=== PATIENT | female | born 1995 | race African-American/Black ===

== ENCOUNTER 2024-12-09 14:05 | Emergency (ER) | payer OTHER, SELFPAY ==
--- NOTE | ~2024-12-09 | XR_ITS ---
EXAMINATION: XR chest 1V portable Exam Date/Time: 12/09/2024 14:15 CDT HISTORY: cough Comparison: None. RESULT: Lines, tubes, and devices: None. Lungs and pleura: Clear. Cardiomediastinal silhouette: Normal. Other: No acute osseous or upper abdominal finding. IMPRESSION: No acute cardiopulmonary process. Reviewed, dictated and finalized at location K.
--- NOTE | 2024-12-09 14:14 | ED_ITS ---
HPI - SOB/Dyspnea General Chief Complaint: Shortness of Breath/Dyspnea Stated Complaint: SOB Source: patient Mode of arrival: ambulatory Limitations: no limitations History of Present Illness HPI Narrative: This is a 29-year-old female who presents to the ED for chief complaint of flu- like symptoms x2 days. States that Tuesday night she started to feel very fatigued and started to have chills. States that she has had subjective fevers at home. States that today she started to develop a cough. Reports that she was at the doctor's office this week and could have been potentially exposed to sick people but no known sick contacts. Endorses nausea with 1 episode of vomiting today. Denies abdominal pain, chest pain, headache, neck pain, vision change. Related Data Allergies Allergy/AdvReac Type Severity Reaction Status Date / Time No Known Allergies Allergy Verified 12/09/24 14:24 Review of Systems Review of Systems: All systems as dictated in HPI Exam Narrative: GENERAL: Well-appearing, well-nourished, and in no acute distress. HEAD: Normocephalic, atraumatic. EYES: PERRLA and EOMI. ENT: Nares clear, no rhinorrhea or epistaxis. Mucous membranes moist. Oropharynx without tonsillar hypertrophy exudate or other lesions. NECK: Supple. No adenopathy or masses. CHEST: No respiratory distress. Clear to auscultation. No wheezes rales or rhonchi HEART: Regular rate and rhythm. No murmur heard. Normal peripheral pulses. ABDOMEN: Soft, nontender, nondistended, normal active bowel sounds. MSK: Normal range of motion. No edema. SKIN: Warm, dry, no rash. NEURO: Alert and oriented x4. No focal deficits. PSYCH: Normal mood and affect. MDM - SOB/Dyspnea MDM Narrative Medical decision making narrative: This is a 29-year-old female who presents to the ED for chief complaint of upper respiratory infection symptoms for the past 2 days. Vitals are normal. Exam is benign. Viral swabs are positive for COVID. Chest x-ray negative. Patient will be discharged in stable condition. Supportive measures discussed and return precautions given. Patient is understanding and agreeable with plan for discharge with PCP follow-up. Discharge Plan Discharge Clinical Impression: COVID-19 Patient Disposition: Home, Self-Care Condition: Stable Instructions: Antibiotic Form, COVID-19 (Coronavirus Disease 2019) (ED) Additional Instructions: Results today are positive for COVID-19. Please make sure that you stay well hydrated, continue with Tylenol 500 mg and ibuprofen 600 mg as needed for aches and fevers. Symptoms should resolve over the next week. If you have any new or worsening symptoms please return to the ER for further evaluation. Patient Language: Mosotho Prescriptions: New guaifenesin 600 mg tablet extended release 12hr 600 mg PO Q12H PRN (Reason: cough) Qty: 30 0RF Time of Disposition: 15:11
[2024-12-09 14:20] VITALS: BP 120/71; PULSE 96; RESP 18; TEMP 36.6; O2SAT 100
[2024-12-09] MEDS: ACETAMINOPHEN 500 MG TABLET 1000 MG PO (14:27)
[2024-12-09] MEDS: ONDANSETRON HCL ODT 4 MG TABLET PO (14:28)
[2024-12-09] MEDS: IBUPROFEN 600 MG TABLET PO (14:28)
[2024-12-09 14:29] VITALS: O2SAT 100
[2024-12-09 14:37] VITALS: BP 125/82; PULSE 76; RESP 18; O2SAT 100
[2024-12-09 15:08] LABS: Influenza A QL RT-PCR Negative (Negative); Influenza B QL RT-PCR Negative (Negative); RSV RNA, RT-PCR Negative (Negative); SARS-CoV-2 RNA PCR Positive (Negative)
[2024-12-09 15:13] VITALS: BP 125/69; PULSE 77; RESP 18; O2SAT 99
== END 2024-12-09 15:13 | disposition home or self-care (01) ==
PROVIDERS: Emergency Provider Physician Assistant
DX: U07.1 COVID-19 (principal)
CPT/HCPCS: 71045; 87637; 99283; A9270